=== PATIENT | female | born 1965 | race Caucasian/White ===

== ENCOUNTER 2019-03-18 12:19 | Outpatient (REF) | payer OTHER, SELFPAY ==
--- NOTE | 2019-03-18 08:30 | PAPFT_PTH ---
PATIENT: Vivian Zepeda LOC: [facility]#:[id number] AGE/SX: 53/F ROOM: RE03/18/[address]: Noemy Rand : 1965 BED: DIS: 03/18/2019 SPEC #: [id number] RECD: 03/19/19 13:00 STATUS: INES DAILEY #: [id number] ANURADHA: 03/18/19 08:[address]: Noemy Rebolledo DEPT: [facility] Cytology RECD BY: Shandra Villalpando Tissues: 1 - CX/ENDOCX FOR PAP SMEARS Procedures: PAP THIN PREP/[facility] Screening HPV DNA PROBE Comments: [id number]
[2019-03-18 21:40] LABS: ALT 26 U/L (12-78); AST 15 U/L (15-37); Alkaline Phosphatase 87 U/L (46-116); BUN 20 mg/dL (7-18); Bilirubin, Total 0.2 mg/dL (0.2-1.0); CREATININE 0.75 mg/dL (0.55-1.02); Calcium 8.9 mg/dL (8.5-10.1); Calculated LDL 94 mg/dL; Chloride 101 mmol/L (98-107); Cholesterol 193 mg/dL (50-200); Glucose 102 mg/dL (70-100); HDL Cholesterol 74 mg/dL (40-60); Potassium 3.8 mmol/L (3.5-5.1); Sodium 140 mmol/L (136-145); Total Protein 7.2 g/dL (6.4-8.2); Triglyceride 129 mg/dL (30-150)
[2019-03-18 21:42] LABS: Hemoglobin A1C 6.3 % (4.5-6.2)
[2019-03-18 23:00] LABS: COMMENT (LAB VIEW ONLY) 203.16 mg/dL; Microalb ug/mg Crea 4.5 ug/mg Cr
== END 2019-03-18 12:39 ==
LOC: NCHCN 12:19
PROVIDERS: PCP Nurse Practitioner Family; Visit Provider Nurse Practitioner Family
DX: Z00.00 Encounter for general adult medical examination without abnormal findings (principal); I10 Essential (primary) hypertension; E11.9 Type 2 diabetes mellitus without complications; Z13.220 Encounter for screening for lipoid disorders; Z12.4 Encounter for screening for malignant neoplasm of cervix; Z11.51 Encounter for screening for human papillomavirus (HPV)
CPT/HCPCS: 80053; 80061; 83721; 88142; 82043; 82570; 83036; 87624

== ENCOUNTER 2020-04-04 00:13 | Outpatient (REF) | payer MEDICAID, SELFPAY ==
[2020-04-04 22:20] LABS: Anion Gap 6.2 mmol/L (3-11); BUN 16 mg/dL (7-18); CO2 30.8 mmol/L (21.0-32.0); Calcium 9.1 mg/dL (8.5-10.1); Chloride 105 mmol/L (98-107); Glucose 129 mg/dL (74-106); Potassium 4.3 mmol/L (3.5-5.1); Sodium 142 mmol/L (136-145); Vitamin B12 545 pg/mL (193-986)
[2020-04-04 22:22] LABS: Hemoglobin A1C 6.1 % (<5.7)
== END 2020-04-04 00:33 ==
LOC: NCHCN 00:13
PROVIDERS: PCP Nurse Practitioner Family; Visit Provider Nurse Practitioner Family
DX: I10 Essential (primary) hypertension (principal); E11.9 Type 2 diabetes mellitus without complications; F41.8 Other specified anxiety disorders; M79.7 Fibromyalgia; Z51.81 Encounter for therapeutic drug level monitoring; G89.4 Chronic pain syndrome
CPT/HCPCS: 80048; 82607; 83036

== ENCOUNTER 2020-06-27 09:51 | Outpatient (REF) | payer MEDICAID, SELFPAY ==
[2020-06-27 22:22] LABS: COMMENT (LAB VIEW ONLY) 142.82 mg/dL; Microalb ug/mg Crea 5.5 ug/mg Cr
== END 2020-06-27 10:11 ==
LOC: NCHCN 09:51
PROVIDERS: PCP Nurse Practitioner Family; Visit Provider Nurse Practitioner Family
DX: I10 Essential (primary) hypertension (principal); E11.9 Type 2 diabetes mellitus without complications; G89.4 Chronic pain syndrome
CPT/HCPCS: 82043; 82570

== ENCOUNTER 2021-03-29 21:14 | Outpatient (REF) | payer MEDICAID, SELFPAY ==
[2021-03-29 22:11] LABS: COMMENT (LAB VIEW ONLY) 117.95 mg/dL; Microalb ug/mg Crea 9.7 ug/mg Cr
[2021-03-29 22:13] LABS: Anion Gap 9.1 mmol/L (3-11); BUN 28 mg/dL (7-18); CO2 26.9 mmol/L (21.0-32.0); CREATININE 0.8 mg/dL (0.55-1.02); Calcium 9.4 mg/dL (8.5-10.1); Chloride 102 mmol/L (98-107); Glucose 127 mg/dL (74-106); Potassium 4.2 mmol/L (3.5-5.1); Sodium 138 mmol/L (136-145); Vitamin B12 1144 pg/mL (193-986)
[2021-03-30 16:29] LABS: Magnesium 2.1 mg/dL (1.7-2.8)
== END 2021-03-29 21:15 | disposition home or self-care (01) ==
LOC: NCHCN 21:14
PROVIDERS: PCP Nurse Practitioner Family; Visit Provider Nurse Practitioner Family
DX: G89.4 Chronic pain syndrome (principal); M79.7 Fibromyalgia; I10 Essential (primary) hypertension; E11.9 Type 2 diabetes mellitus without complications; F41.8 Other specified anxiety disorders; Z79.899 Other long term (current) drug therapy
CPT/HCPCS: 80048; 82043; 82570; 82607; 83036; 83735

== ENCOUNTER 2022-02-28 15:06 | Outpatient (REF) | payer MEDICAID, SELFPAY ==
[2022-02-28 20:37] LABS: Anion Gap 9.8 mmol/L (3-11); BUN 23 mg/dL (7-18); CO2 27.2 mmol/L (21.0-32.0); Calcium 9.3 mg/dL (8.5-10.1); Chloride 101 mmol/L (98-107); Estimated GFR 57.56 (mL/min/1.73m2); Glucose 122 mg/dL (74-106); Potassium 3.7 mmol/L (3.5-5.1); Sodium 138 mmol/L (136-145)
== END 2022-02-28 15:07 | disposition home or self-care (01) ==
LOC: NCHCN 15:06
PROVIDERS: PCP Nurse Practitioner Family; Visit Provider Nurse Practitioner Family
DX: E11.9 Type 2 diabetes mellitus without complications (principal); I10 Essential (primary) hypertension; K21.9 Gastro-esophageal reflux disease without esophagitis; M79.7 Fibromyalgia
CPT/HCPCS: 80048; 83036

== ENCOUNTER 2022-09-17 17:45 | Outpatient (REF) | payer MEDICAID, SELFPAY ==
[2022-09-17 15:11] LABS: COMMENT (LAB VIEW ONLY) 112.13 mg/dL
== END 2022-09-17 17:46 | disposition home or self-care (01) ==
LOC: NCHCN 17:45
PROVIDERS: PCP Nurse Practitioner Family; Visit Provider Nurse Practitioner Family
DX: E11.9 Type 2 diabetes mellitus without complications (principal)
CPT/HCPCS: 82043; 82570

== ENCOUNTER 2023-03-27 12:58 | Outpatient (REF) | payer MEDICAID, SELFPAY ==
[2023-03-27 17:01] LABS: HCT 39.5 % (36.0-46.0); HGB 12.7 g/dL (11.2-15.7); MCH 30.5 pg (27.0-33.0); MCHC 32.2 % (32.0-36.0); MCV 95 fL (80-95); Platelet Count 387 10^3/uL (130-400); RBC 4.16 10^6/uL (3.93-5.22); RDW 11.9 % (11.7-14.6); RDW-SD 40.8 fL; WBC 7.77 10^3/uL (4.4-10.8)
[2023-03-27 17:24] LABS: Hemoglobin A1C 6.1 % (<5.7)
[2023-03-27 17:37] LABS: ALT 21 U/L (14-59); AST 19 U/L (15-37); Albumin 3.6 g/dL (3.4-5.0); Alkaline Phosphatase 91 U/L (46-116); Anion Gap 5.9 mmol/L (3-11); BUN 25 mg/dL (7-18); Bilirubin, Total 0.3 mg/dL (0.2-1.0); CO2 30.1 mmol/L (21.0-32.0); Calcium 9.2 mg/dL (8.5-10.1); Chloride 101 mmol/L (98-107); Estimated GFR 66.12 (mL/min/1.73m2); Glucose 117 mg/dL (74-106); Potassium 4.3 mmol/L (3.5-5.1); Sodium 137 mmol/L (136-145); TSH 1.16 uIU/mL (0.36-3.74); Total Protein 6.9 g/dL (6.4-8.2)
== END 2023-03-27 12:59 | disposition home or self-care (01) ==
LOC: NCHCN 12:58
PROVIDERS: PCP Nurse Practitioner Family; Visit Provider Nurse Practitioner Family
DX: I10 Essential (primary) hypertension (principal); E11.9 Type 2 diabetes mellitus without complications; R53.83 Other fatigue; M79.7 Fibromyalgia; R11.0 Nausea
CPT/HCPCS: 80053; 85027; 83036; 84443

== ENCOUNTER 2023-08-05 14:55 | Outpatient (REF) | payer MEDICAID, SELFPAY ==
[2023-08-05 22:03] LABS: COMMENT (LAB VIEW ONLY) 166.86 mg/dL; Microalb ug/mg Crea 6.4 ug/mg Cr
== END 2023-08-05 14:56 | disposition home or self-care (01) ==
LOC: NCHCN 14:55
PROVIDERS: PCP Nurse Practitioner Family; Visit Provider Nurse Practitioner Family
DX: E11.9 Type 2 diabetes mellitus without complications (principal)
CPT/HCPCS: 82043; 82570

== ENCOUNTER 2024-03-11 22:09 | Outpatient (REF) | payer MEDICAID, SELFPAY ==
[2024-03-11 14:47] LABS: HCT 42.3 % (36.0-46.0); HGB 13.9 g/dL (11.2-15.7); MCH 31.4 pg (27.0-33.0); MCHC 32.9 % (32.0-36.0); MCV 96 fL (80-95); Platelet Count 337 10^3/uL (130-400); RBC 4.42 10^6/uL (3.93-5.22); RDW 12.2 % (11.7-14.6); RDW-SD 43.1 fL; WBC 7.31 10^3/uL (4.4-10.8)
[2024-03-11 15:01] LABS: Bacteria Few HPF (Negative); C & S Indicated? No; Casts Negative LPF (Negative); Crystals Negative HPF (Negative); Epithelial Cells Few HPF (Negative); Mucus Negative (Negative); RBC 0-2 HPF (0-2); WBC 0-2 HPF (0-5)
[2024-03-11 15:19] LABS: ALT 33 U/L (14-59); AST 23 U/L (15-37); Albumin 4.2 g/dL (3.4-5.0); Alkaline Phosphatase 86 U/L (46-116); Anion Gap 9.3 mmol/L (3-11); BUN 32 mg/dL (7-18); Bilirubin, Total 0.32 mg/dL (0.2-1.0); CO2 28.7 mmol/L (21.0-32.0); CREATININE 1.3 mg/dL (0.55-1.02); Calcium 9.7 mg/dL (8.5-10.1); Calculated LDL 117 mg/dL (<100); Chloride 99 mmol/L (98-107); Cholesterol 215 mg/dL (<200); Estimated GFR 47.96 (mL/min/1.73m2); Glucose 130 mg/dL (74-106); HDL Cholesterol 84 mg/dL (40-60); Potassium 4.3 mmol/L (3.5-5.1); Sodium 137 mmol/L (136-145); TSH 2.23 uIU/Ml (0.36-3.74); Total Protein 7.9 g/dL (6.4-8.2); Triglyceride 74 mg/dL (<150)
== END 2024-03-11 22:10 | disposition home or self-care (01) ==
LOC: NCHCN 22:09
PROVIDERS: PCP Nurse Practitioner Family; Visit Provider Nurse Practitioner Family
DX: I10 Essential (primary) hypertension (principal); R30.0 Dysuria; Z13.0 Encounter for screening for diseases of the blood and blood-forming organs and certain disorders involving the immune mechanism; Z13.29 Encounter for screening for other suspected endocrine disorder
CPT/HCPCS: 80053; 80061; 85027; 81015; 84443

== ENCOUNTER 2024-06-08 13:30 | Outpatient (REF) | payer MEDICAID, SELFPAY ==
--- NOTE | 2024-06-08 10:30 | PAPFT_PTH ---
PATIENT: Vivian Zepeda LOC: [facility]#:[id number] AGE/SX: 58/F ROOM: RE06/08/[address]: Noemy Rand : 1965 BED: DIS: 06/08/2024 SPEC #: [id number] RECD: 06/08/24 15:28 STATUS: INES DAILEY #: [id number] ANURADHA: 06/08/24 10:[address]: Noemy Rebolledo [facility]PT[facility] Cytology RECD BY: Shandra Villalpando Tissues: 1 - CX/ENDOCX FOR PAP SMEARS Procedures: PAP THIN PREP/[facility] Screening HPV DNA PROBE Comments: [id number] (HPV 16 & 18/45)
== END 2024-06-08 13:31 | disposition home or self-care (01) ==
LOC: NCHCN 13:30
PROVIDERS: PCP Nurse Practitioner Family; Visit Provider Nurse Practitioner Family
DX: Z11.51 Encounter for screening for human papillomavirus (HPV) (principal); Z01.419 Encounter for gynecological examination (general) (routine) without abnormal findings
CPT/HCPCS: 88142; 87624

== ENCOUNTER 2024-09-16 11:16 | Outpatient (REF) | payer MEDICAID, SELFPAY ==
[2024-09-16 23:35] LABS: COMMENT (LAB VIEW ONLY) 78.66 mg/dL; Microalb ug/mg Crea 6.7 ug/mg Cr
== END 2024-09-16 11:17 | disposition home or self-care (01) ==
LOC: NCHCN 11:16
PROVIDERS: PCP Nurse Practitioner Family; Visit Provider Nurse Practitioner Family
DX: E11.9 Type 2 diabetes mellitus without complications (principal)
CPT/HCPCS: 82043; 82570

== ENCOUNTER 2025-05-09 14:57 | Outpatient (REF) | payer MEDICAID, SELFPAY ==
[2025-05-09 21:37] LABS: HCT 39.8 % (36.0-46.0); HGB 13.2 g/dL (11.2-15.7); MCH 31.5 pg (27.0-33.0); MCHC 33.2 % (32.0-36.0); MCV 95 fL (80-95); MPV 10.0 fL (8.0-11.0); Platelet Count 311 10^3/uL (130-400); RBC 4.19 10^6/uL (3.93-5.22); RDW 11.9 % (11.7-14.6); RDW-SD 41.8 fL; WBC 8.69 10^3/uL (4.4-10.8)
[2025-05-09 21:51] LABS: Hemoglobin A1C 5.9 % (<5.7)
[2025-05-09 22:00] LABS: ALT 22 U/L (14-59); AST 26 U/L (15-37); Albumin 3.9 g/dL (3.4-5.0); Alkaline Phosphatase 94 U/L (46-116); Anion Gap 11.2 mmol/L (3-11); BUN 29 mg/dL (7-18); Bilirubin, Total 0.3 mg/dL (0.2-1.0); CO2 24.8 mmol/L (21.0-32.0); Calcium 9.1 mg/dL (8.5-10.1); Calculated LDL 105 mg/dL (<100); Chloride 100 mmol/L (98-107); Cholesterol 196 mg/dL (<200); Estimated GFR 47.66 (mL/min/1.73m2); Glucose 117 mg/dL (74-106); HDL Cholesterol 58 mg/dL (>or=50); Potassium 3.7 mmol/L (3.5-5.1); Sodium 136 mmol/L (136-145); TSH 3.97 uIU/mL (0.36-3.74); Total Protein 7.6 g/dL (6.4-8.2); Triglyceride 167 mg/dL (<150)
== END 2025-05-09 14:58 | disposition home or self-care (01) ==
LOC: NCHCN 14:57
PROVIDERS: PCP Nurse Practitioner Family; Visit Provider Nurse Practitioner Family
DX: E11.9 Type 2 diabetes mellitus without complications (principal); Z13.29 Encounter for screening for other suspected endocrine disorder; Z13.0 Encounter for screening for diseases of the blood and blood-forming organs and certain disorders involving the immune mechanism
CPT/HCPCS: 80053; 80061; 85027; 83036; 84443

== ENCOUNTER 2025-07-12 11:31 | Outpatient (REF) | payer MEDICAID, SELFPAY | END 2025-07-12 11:32 | disposition home or self-care (01) | LOC: NCHCN 11:31 | PROVIDERS: PCP Nurse Practitioner Family; Visit Provider Nurse Practitioner Family | DX: N30.01 Acute cystitis with hematuria (principal) | CPT/HCPCS: 87077; 87086; 87186 ==